=== PATIENT | male | born 1945 | race Caucasian/White ===

== ENCOUNTER 2017-03-02 17:38 | Emergency (ER) | payer OTHER ==
[~2017-03-02] VITALS: Ht 185.4 cm; Wt 99.5 kg
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
[2017-03-02 21:13] LABS: AUTOMATED NEUTROPHIL # 13.3 TH/MM3 (1.8-7.7); BASOPHIL % 0.1 % (0.0-2.0); EOSINOPHIL # 0.1 TH/MM3 (0-0.4); EOSINOPHIL % 0.5 % (0.0-4.0); HEMATOCRIT 34.1 % (39.0-51.0); HEMO FLAGS DIFF FINAL; LYMPHOCYTE # 1.4 TH/MM3 (1.0-4.8); MEAN CELL VOLUME 96.2 FL (80.0-100.0); MEAN CORPUSCULAR HEMOGLOBIN 32.4 PG (27.0-34.0); MEAN CORPUSCULAR HGB CONC 33.7 % (32.0-36.0); MONO % 7.4 % (0.0-8.0); PLATELET COUNT 186 TH/MM3 (150-450); RED BLOOD COUNT 3.54 MIL/MM3 (4.50-5.90); RED CELL DISTRIBUTION WIDTH 13.1 % (11.6-17.2)
[2017-03-02 21:19] LABS: INTERNATIONAL NORMALIZED RATIO 0.9 RATIO; PROTHROMBIN TIME - PATIENT 10.3 SEC (9.8-11.6)
[2017-03-02 21:31] VITALS: BP 146/70; PULSE 71; RESP 12; TEMP 98.1; O2SAT 97
[2017-03-02 21:35] LABS: BICARBONATE 24.5 MEQ/L (21.0-32.0); POTASSIUM 4.9 MEQ/L (3.5-5.1)
[2017-03-02] MEDS ORDERED: SODIUM CHLORID 0.9% 500 ML INJ 500 ML IV ONE (21:45)
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
[2017-03-02] MEDS ORDERED: IODIXANOL 320 MG/ML 10 ML VIAL (for Rad CT) IV ONE (22:15)
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
[2017-03-02 22:26] VITALS: BP 165/85; PULSE 75; RESP 20; O2SAT 96
[2017-03-02 22:32] LABS: BLOOD, URINE NEG (NEG); COMMENT (UR) CULT NOT INDICATED; CULTURE IF INDICATED CULT NOT INDICATED; GLUCOSE,URINE NEG (NEG); HYALINE CAST, URINE 3 /lpf (RARE); KETONE, URINE NEG (NEG); NITRITE,URINE NEG (NEG); PH, URINE 5.5 (5.0-8.5); URINE COLOR YELLOW (YELLW/STRAW)
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
[2017-03-02] MEDS ORDERED: PERC5TAB12 PO (22:54)
[2017-03-02 23:03] VITALS: BP 161/82; PULSE 71; RESP 20; TEMP 98.3; O2SAT 98
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
== END 2017-03-02 23:18 | disposition home or self-care (01) ==
LOC: NEPD 17:38
DX: S27.329A Contusion of lung, unspecified, initial encounter (principal); R91.8 Other nonspecific abnormal finding of lung field; S30.1XXA Contusion of abdominal wall, initial encounter; S20.212A Contusion of left front wall of thorax, initial encounter; M25.561 Pain in right knee; M79.644 Pain in right finger(s); I10 Essential (primary) hypertension; V89.2XXA Person injured in unspecified motor-vehicle accident, traffic, initial encounter
CPT/HCPCS: 70450; 71010; 71260; 72125; 72128; 72131; 74177; 80048; 81001; 85025; 85610; 85730; 96360; 99285; J7040; Q9967